=== PATIENT | female | born 1965 | race Caucasian/White ===

== ENCOUNTER 2019-04-15 14:36 | Emergency (ER) | payer BC ==
[~2019-04-15] VITALS: Ht 157.5 cm; Wt 113.4 kg
[~2019-04-15 14:36] MED LIST: LEVOTHYROXIN0.075 MG PO; MIRAPEX0.5 MG PO; OXCARBAZEPINE600 MG PO; PEPCID20 MG PO; SYMBYAX 12-251 EACH PO; VISTARIL 25 MG25 M1 PO; XANAX1 MG PO
[2019-04-15] MEDS ORDERED: FISH OIL 1,001000 M2 PO (14:45)
[2019-04-15 15:20] LABS: ABSOLUTE BASOPHILS 0.1 thou/uL (0.0-0.2); ABSOLUTE LYMPHOCYTES 2.6 thou/uL (0.8-5.3); ABSOLUTE MONOCYTES 0.3 thou/uL (0.0-1.2); ABSOLUTE NEUTROPHILS 2.4 thou/uL (1.6-8.1); BASOPHILS 1.3 %; HEMOGLOBIN 15.2 gm/dL (12.0-15.0); LYMPHOCYTES 49.6 %; MCH 30.4 pg (26.0-34.0); MCHC 34.5 g/dL (28.0-37.0); MCV 88.1 fL (80.0-100.0); MONOCYTES 4.9 %; MPV 7.9 fl. (7.2-11.1); NUCLEATED RBCS 0 /100WBC; PLATELET COUNT* 246 thou/uL (150-400); POLYS 44.2 %; RBC 4.99 mil/uL (4.20-5.00); RDW-CV 13.4 % (10.5-14.5); WBC 5.3 thou/uL (4.0-11.0)
[2019-04-15 15:30] LABS: ANION GAP 9 mmol/L (7-16); BUN 14 mg/dL (7-18); CALCIUM 9.9 mg/dL (8.5-10.1); CHLORIDE 95 mmol/L (98-107); CO2 29 mmol/L (21-32); GLUCOSE 328 mg/dL (70-99); INR 1.1; POTASSIUM 4.2 mmol/L (3.5-5.1); PROTIME 11.1 Seconds (9.20-11.50); SODIUM 133 mmol/L (136-145)
[2019-04-15 15:40] LABS: ALBUMIN 3.7 g/dL (3.4-5.0); ALKALINE PHOSPHATASE 84 U/L (46-116); LIPASE 195 U/L (73-393); NT-PRO BRAIN NAT PEPTIDE 70 pg/mL (<300); SGOT 65 U/L (15-37); SGPT 171 U/L (30-65); TOTAL BILIRUBIN 0.5 mg/dL (<0.1-1.0); TOTAL PROTEIN 7.7 g/dL (6.4-8.2); TROPONIN-I LEVEL <0.06 ng/mL (<0.06)
[2019-04-15] MEDS ORDERED: HYDROCODON-ACE1 EAC7 PO (15:56)
[2019-04-15 16:11] VITALS: BP 169/85
--- NOTE | 2019-04-17 13:10 | EKG ---
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 04/17/19 1310 1442 1442 Ji Bearden MD, FACC /EPI
== END 2019-04-15 16:11 | disposition home or self-care (01) ==
LOC: M.ERS 14:36
PROVIDERS: Emergency Medicine
DX: R07.89 Other chest pain (principal); R73.9 Hyperglycemia, unspecified; I10 Essential (primary) hypertension; G25.81 Restless legs syndrome; E03.9 Hypothyroidism, unspecified; Z88.8 Allergy status to other drugs, medicaments and biological substances

== ENCOUNTER → 2019-05-22 | Outpatient (CLI) | payer BC ==
[~2019-05-22] MED LIST changes: +FISH OIL 1,001000 M2 PO; +HYDROCODON-ACE1 EAC7 PO
== END ==
LOC: M.ULTRA 05-15 07:30
DX: K76.0 Fatty (change of) liver, not elsewhere classified (principal); R16.0 Hepatomegaly, not elsewhere classified

== ENCOUNTER 2019-12-08 16:41 | Emergency (ER) | payer BC ==
[~2019-12-08] VITALS: Ht 157.5 cm; Wt 86.2 kg
[2019-12-08] MEDS ORDERED: ZANTAC 150MG T150 M1 PO (16:56)
[2019-12-08 17:48] LABS: ABSOLUTE LYMPHOCYTES 2.6 thou/uL (0.8-5.3); ABSOLUTE MONOCYTES 0.4 thou/uL (0.0-1.2); ABSOLUTE NEUTROPHILS 3.3 thou/uL (1.6-8.1); BASOPHILS 0.5 %; HEMATOCRIT 42.4 % (37.0-47.0); HEMOGLOBIN 14.4 gm/dL (12.0-15.0); LYMPHOCYTES 41.4 %; MCH 29.5 pg (26.0-34.0); MCV 86.9 fL (80.0-100.0); MONOCYTES 5.9 %; MPV 7.3 fl. (7.2-11.1); NUCLEATED RBCS 0 /100WBC; PLATELET COUNT* 272 thou/uL (150-400); POLYS 52.2 %; RBC 4.89 mil/uL (4.20-5.00); RDW-CV 13.8 % (10.5-14.5); WBC 6.3 thou/uL (4.0-11.0)
[2019-12-08 18:05] LABS: CALCIUM 9.4 mg/dL (8.5-10.1); CREATININE 0.9 mg/dL (0.6-1.3); POTASSIUM 4.1 mmol/L (3.5-5.1)
[2019-12-08 18:15] LABS: INR 1.1; PROTIME 11.3 Seconds (9.20-11.50)
[2019-12-08 18:16] LABS: ALBUMIN 4.2 g/dL (3.4-5.0); TOTAL BILIRUBIN 0.4 mg/dL (<0.1-1.0); TOTAL PROTEIN 8.2 g/dL (6.4-8.2)
[2019-12-08] MEDS ORDERED: LIPITOR 20 MG T20 M1 PO (18:42)
[2019-12-08] MEDS ORDERED: LEXAPRO20 MG PO (18:42)
[2019-12-08] MEDS ORDERED: OMEPRAZOLE 20 M20 M1 PO (18:43)
[2019-12-08] MEDS ORDERED: LAMOTRIGINE200 M1 PO (18:44)
[2019-12-08] MEDS ORDERED: GLUCOPHAGE1000 MG PO (18:44)
[2019-12-08] MEDS ORDERED: REQUIP3 MG PO (18:45)
[2019-12-08] MEDS ORDERED: TESSALON PERLE100 M1 PO (20:00)
[2019-12-08] MEDS ORDERED: ZOFRAN ODT4 MG DISSOLVE (20:00)
[2019-12-08 20:45] LABS: URINE BILIRUBIN NEGATIVE (Negative); URINE BLOOD NEGATIVE (Negative); URINE CLARITY CLEAR; URINE COLOR YELLOW; URINE GLUCOSE-RANDOM NEGATIVE (Negative); URINE KETONES NEGATIVE (Negative); URINE LEUKOCYTES-REFLEX TRACE (Negative); URINE NITRITE-REFLEX NEGATIVE (Negative); URINE PROTEIN NEGATIVE (Negative); URINE SPECIFIC GRAVITY 1.015 (1.005-1.030); URINE UROBILINOGEN 0.2 E.U./dl (0.2-1.0)
[2019-12-08 20:52] LABS: BACTERIA-REFLEX None Seen /HPF (None Seen); CASTS None Seen /LPF (None Seen); SQUAMOUS 4-10 Moderate /LPF (0-3); URINE RBC None Seen /HPF (0-2); URINE WBC-REFLEX 0-5 Rare /HPF (0-5)
[2019-12-08 20:53] LABS: CRYSTALS None Seen /LPF (None Seen)
[2019-12-08] MEDS ORDERED: KEFLEX500 M1 PO (20:54)
[2019-12-08 21:02] VITALS: BP 146/96
--- NOTE | 2019-12-09 11:21 | EKG ---
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
--- NOTE | 2019-12-09 11:21 | EKG ---
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: : 1965 Requested By: Parisa Armstrong Order Number: [id number] MD: Ji Bearden Measurements Intervals [place] Rate: 91 P: 48 [place]: 158 QRS: 1 QRSD: 98 T: 71 QT: 360 QTc: 443 Interpretive Statements Sinus rhythm Anterior infarct, old Compared to ECG 04/15/2019 14:42:01 Ventricular premature complex(es) no longer present Electronically Signed On 12-09-2019 11:19:35 CDT by Ji Bearden [email or web address] <ELECTRONICALLY SIGNED> By: Ji Bearden MD, FACC 12/09/19 1119 1655 1655 Ji Bearden MD, [facility] /EPI
== END 2019-12-08 21:03 | disposition home or self-care (01) ==
LOC: M.ERS 16:41
PROVIDERS: Personal Emergency Response Attendant
DX: B34.9 Viral infection, unspecified (principal); R09.1 Pleurisy; R07.89 Other chest pain; R11.2 Nausea with vomiting, unspecified; G25.81 Restless legs syndrome; E03.9 Hypothyroidism, unspecified; E11.9 Type 2 diabetes mellitus without complications; I10 Essential (primary) hypertension; Z88.8 Allergy status to other drugs, medicaments and biological substances

== ENCOUNTER → 2021-03-27 | Outpatient (CLI) | payer OTHER ==
[~2021-03-27] MED LIST changes: +GLUCOPHAGE1000 MG PO; +KEFLEX500 M1 PO; +LAMOTRIGINE200 M1 PO; +LEXAPRO20 MG PO; +LIPITOR 20 MG T20 M1 PO; +OMEPRAZOLE 20 M20 M1 PO; +REQUIP3 MG PO; +TESSALON PERLE100 M1 PO; +ZANTAC 150MG T150 M1 PO; +ZOFRAN ODT4 MG DISSOLVE
== END ==
LOC: M.MRI 02-04 13:30
PROVIDERS: ATTEND Family Medicine
DX: G93.89 Other specified disorders of brain (principal); E11.9 Type 2 diabetes mellitus without complications; E78.5 Hyperlipidemia, unspecified; D35.2 Benign neoplasm of pituitary gland; Z88.8 Allergy status to other drugs, medicaments and biological substances; Z79.899 Other long term (current) drug therapy